=== PATIENT | male | born 1975 | race Caucasian/White ===

== ENCOUNTER 2016-05-21 11:04 | Emergency (ER) | payer MEDICAID ==
[~2016-05-21] VITALS: Ht 175.3 cm; Wt 98.4 kg
[~2016-05-21 11:04] MED LIST: BUSP7.5T3 PO; CYCL-259 PO; DOLU50TA PO; EMTR1TAB12 PO; FLUO40CA9 PO; FLUO60TA PO; HYDR50CA PO; IBUP-1222 PO; PRAZ2CAP2 PO; TRAZ50TA18 PO; [UNRECOGNIZED DRUG - OTHER] PO
[2016-05-21 11:05] VITALS: BP 137/90
[2016-05-21] MEDS ORDERED: LORazepam 1MG TABLET ONE (11:49)
[2016-05-21] MEDS ORDERED: LORazepam 1MG TABLET PO ONE (12:00)
== END 2016-05-21 13:00 | disposition home or self-care (01) ==
LOC: ED 12:23
DX: F41.1 Generalized anxiety disorder (principal); F32.9 Major depressive disorder, single episode, unspecified; Z90.89 Acquired absence of other organs
CPT/HCPCS: 99284

== ENCOUNTER 2016-05-25 22:43 | Observation (INO) | payer MEDICAID ==
[~2016-05-25] VITALS: Ht 175.3 cm; Wt 96.4 kg
[2016-05-25 23:37] LABS: HEMOGLOBIN 15.3 g/dL (13.7-18.0)
[2016-05-25 23:51] LABS: ACETAMINOPHEN < 2 mcg/mL (10-30); BLOOD UREA NITROGEN 19 mg/dL (7-18)
[2016-05-25 23:57] LABS: DAU SCREEN DISCLAIMER
[2016-05-26] MEDS ORDERED: BISACODYL 10 MG SUPP PR PRN (03:30)
[2016-05-26] MEDS ORDERED: DOCUSATE 100 MG CAPSULE PO PRN (03:30)
[2016-05-26] MEDS ORDERED: ONDANSETRON ODT 4 MG PO PRN (03:30)
[2016-05-26] MEDS ORDERED: POLYETHYLENE GLYCOL 17 GM PACKET PO PRN (03:30)
[2016-05-26] MEDS ORDERED: hydrOXYzine 25 MG/ML IM PRN (03:30)
[2016-05-26 04:05] VITALS: BP 131/90
[2016-05-26] MEDS ORDERED: POTASSIUM CHLORIDE 20 MEQ TAB.ER.PRT PO ONE (04:30)
[2016-05-26 08:04] VITALS: BP 113/70
[2016-05-26] MEDS: EMTRICITABINE/TENOFOVIR 200 MG/300 MG TABLET PO SCH (09:04)
[2016-05-26] MEDS: FLUOXETINE 20 MG CAPSULE PO SCH (09:04)
[2016-05-26] MEDS: HYDROcodone/APAP 5/325 TABLET PO PRN ×2 (14:49→20:59)
[2016-05-26] MEDS: ACETAMINOPHEN 325 MG TABLET PO PRN (16:24)
[2016-05-26 20:00] VITALS: BP 119/68
[2016-05-26] MEDS: TRAZODONE 50MG TABLET PO PRN (20:59)
[2016-05-27] MEDS: HYDROcodone/APAP 5/325 TABLET PO PRN ×3 (03:03→20:11)
[2016-05-27] MEDS: EMTRICITABINE/TENOFOVIR 200 MG/300 MG TABLET PO SCH (07:56)
[2016-05-27] MEDS: FLUOXETINE 20 MG CAPSULE PO SCH (07:56)
[2016-05-27 08:27] VITALS: BP 124/83
[2016-05-27 19:44] VITALS: BP 135/82
[2016-05-27] MEDS: ACETAMINOPHEN 325 MG TABLET PO PRN (21:41)
[2016-05-27] MEDS: TRAZODONE 50MG TABLET PO PRN (22:18)
[2016-05-28] MEDS: HYDROcodone/APAP 5/325 TABLET PO PRN (05:37)
== END 2016-05-28 06:06 ==
LOC: ED 23:59 → INTOOBSV 05-26 02:18 → EDIP 05-26 02:18 → 3E 05-26 04:00
PROVIDERS: ADMIT Internal Medicine; ATTEND Internal Medicine
DX: R45.851 Suicidal ideations (principal); B20 Human immunodeficiency virus [HIV] disease; B19.20 Unspecified viral hepatitis C without hepatic coma; J06.9 Acute upper respiratory infection, unspecified; F41.9 Anxiety disorder, unspecified; E87.6 Hypokalemia; F32.9 Major depressive disorder, single episode, unspecified; M54.9 Dorsalgia, unspecified; G89.29 Other chronic pain; F17.210 Nicotine dependence, cigarettes, uncomplicated; F15.10 Other stimulant abuse, uncomplicated; Z98.890 Other specified postprocedural states
CPT/HCPCS: 36415; 80048; 80307; 80329; 82040; 84132; 85025; 99285; G0378; G0480

== ENCOUNTER 2016-07-10 12:36 | Observation (INO) | payer MEDICAID ==
[~2016-07-10] VITALS: Ht 175.3 cm; Wt 98.0 kg
[2016-07-10] MEDS ORDERED: FLUO40CA2 PO (12:57)
[2016-07-10] MEDS ORDERED: BUSP7.5T3 PO (12:57)
[2016-07-10] MEDS ORDERED: CLON0.5T PO (12:57)
[2016-07-10] MEDS ORDERED: DICL50TA4 PO (12:57)
[2016-07-10] MEDS ORDERED: DOLU50TA PO (12:57)
[2016-07-10] MEDS ORDERED: TRAZ100T15 PO (12:57)
[2016-07-10] MEDS ORDERED: HYDR25CA PO (12:57)
[2016-07-10] MEDS ORDERED: FLUO40CA9 PO (12:57)
[2016-07-10 13:14] LABS: DAU SCREEN DISCLAIMER
[2016-07-10 14:13] LABS: BLOOD UREA NITROGEN 9 mg/dL (7-18)
[2016-07-10 14:16] LABS: ASPARTATE AMINO TRANSFERASE 44 U/L (15-37)
[2016-07-10 14:17] LABS: ACETAMINOPHEN < 2 mcg/mL (10-30)
[2016-07-10] MEDS ORDERED: POLYETHYLENE GLYCOL 17 GM PACKET PO PRN (18:00)
[2016-07-10] MEDS ORDERED: ACETAMINOPHEN 325 MG TABLET PO PRN (18:00)
[2016-07-10] MEDS ORDERED: DOCUSATE 100 MG CAPSULE PO PRN (18:00)
[2016-07-10] MEDS ORDERED: BISACODYL 10 MG SUPP PR PRN (18:00)
[2016-07-10] MEDS ORDERED: HYDROXYZINE PAMOATE 25 MG PO SCH (19:00)
[2016-07-10] MEDS ORDERED: HYDROXYZINE MC SCH (19:00)
[2016-07-10 19:19] VITALS: BP 135/86
[2016-07-10] MEDS ORDERED: TRAZODONE 50MG TABLET ONE (20:12)
[2016-07-10] MEDS ORDERED: DICLOFENAC 50 MG TABLET.DR PO SCH (21:00)
[2016-07-10] MEDS: TRAZODONE 100MG TABLET PO SCH (21:12)
[2016-07-11 08:20] VITALS: BP 112/73
[2016-07-11] MEDS: BUSPIRONE 5 MG TABLET PO SCH (08:57)
[2016-07-11] MEDS: FLUOXETINE 20 MG CAPSULE PO SCH (08:58)
[2016-07-11] MEDS ORDERED: TEMPLATE NON-FORMULARY MED. (Fluoxetine Hcl** 40 MG) PO SCH (09:00)
[2016-07-11] MEDS: DOLUTEGRAVIR SODIUM 50 MG HOMEMEDPO SCH (09:00)
[2016-07-11 19:21] VITALS: BP 147/85
[2016-07-11] MEDS: TRAZODONE 100MG TABLET PO SCH (20:24)
[2016-07-12 07:43] VITALS: BP 134/93
[2016-07-12] MEDS: BUSPIRONE 5 MG TABLET PO SCH (08:54)
[2016-07-12] MEDS: DOLUTEGRAVIR SODIUM 50 MG HOMEMEDPO SCH (08:55)
[2016-07-12] MEDS: FLUOXETINE 20 MG CAPSULE PO SCH (08:55)
[2016-07-12 19:55] VITALS: BP_SYST 124; BP_SYST 148; BP_DIAS 81; BP_DIAS 99
[2016-07-12] MEDS: TRAZODONE 100MG TABLET PO SCH (21:00)
[2016-07-13 07:56] VITALS: BP 132/89
[2016-07-13] MEDS: DOLUTEGRAVIR SODIUM 50 MG HOMEMEDPO SCH (08:28)
[2016-07-13] MEDS: BUSPIRONE 5 MG TABLET PO SCH (08:29)
[2016-07-13] MEDS: FLUOXETINE 20 MG CAPSULE PO SCH (08:30)
[2016-07-13] MEDS: TRAZODONE 100MG TABLET PO SCH (21:00)
[2016-07-14 08:00] VITALS: BP 128/85
[2016-07-14] MEDS: DOLUTEGRAVIR SODIUM 50 MG HOMEMEDPO SCH (09:00)
[2016-07-14] MEDS: BUSPIRONE 5 MG TABLET PO SCH (09:02)
[2016-07-14] MEDS: FLUOXETINE 20 MG CAPSULE PO SCH (09:03)
[2016-07-14] MEDS: METHOCARBAMOL 500 MG TABLET PO PRN (13:38)
[2016-07-14 19:38] VITALS: BP 130/84
[2016-07-14] MEDS: TRAZODONE 100MG TABLET PO SCH (20:12)
[2016-07-15] MEDS: DOLUTEGRAVIR SODIUM 50 MG HOMEMEDPO SCH (07:57)
[2016-07-15] MEDS: BUSPIRONE 5 MG TABLET PO SCH (07:58)
[2016-07-15] MEDS: FLUOXETINE 20 MG CAPSULE PO SCH (07:59)
[2016-07-15 08:08] VITALS: BP 122/70
[2016-07-15 20:01] VITALS: BP 116/76
[2016-07-15] MEDS ORDERED: TRAZODONE 50MG TABLET ONE (20:58)
[2016-07-15] MEDS: TRAZODONE 100MG TABLET PO SCH (21:00)
[2016-07-16] MEDS: DOLUTEGRAVIR SODIUM 50 MG HOMEMEDPO SCH (08:11)
[2016-07-16] MEDS: BUSPIRONE 5 MG TABLET PO SCH (08:12)
[2016-07-16] MEDS: FLUOXETINE 20 MG CAPSULE PO SCH (08:13)
[2016-07-16 08:34] VITALS: BP 133/95
[2016-07-16 19:43] VITALS: BP 137/80
[2016-07-16] MEDS: TRAZODONE 100MG TABLET PO SCH (22:37)
[2016-07-17 07:57] VITALS: BP 115/57
[2016-07-17] MEDS: BUSPIRONE 5 MG TABLET PO SCH (08:49)
[2016-07-17] MEDS: FLUOXETINE 20 MG CAPSULE PO SCH (08:50)
[2016-07-17] MEDS: DOLUTEGRAVIR SODIUM 50 MG HOMEMEDPO SCH (09:00)
[2016-07-17 20:00] VITALS: BP 125/90
[2016-07-17] MEDS ORDERED: TRAZODONE 50MG TABLET ONE (20:31)
[2016-07-17] MEDS: TRAZODONE 100MG TABLET PO SCH (20:40)
[2016-07-18] MEDS: METHOCARBAMOL 500 MG TABLET PO PRN ×2 (04:14→21:36)
[2016-07-18 07:41] VITALS: BP 129/92
[2016-07-18] MEDS: FLUOXETINE 20 MG CAPSULE PO SCH (08:50)
[2016-07-18] MEDS: BUSPIRONE 5 MG TABLET PO SCH (08:51)
[2016-07-18] MEDS: DOLUTEGRAVIR SODIUM 50 MG HOMEMEDPO SCH (08:54)
[2016-07-18 19:22] VITALS: BP 127/92
[2016-07-18] MEDS: TRAZODONE 100MG TABLET PO SCH (20:59)
[2016-07-19 07:42] VITALS: BP 112/75
[2016-07-19] MEDS: DOLUTEGRAVIR SODIUM 50 MG HOMEMEDPO SCH (09:00)
[2016-07-19] MEDS: FLUOXETINE 20 MG CAPSULE PO SCH (09:00)
[2016-07-19] MEDS: BUSPIRONE 5 MG TABLET PO SCH (09:00)
== END 2016-07-19 18:00 | disposition home or self-care (01) ==
LOC: ED 14:01 → EDIP 16:59 → 3E 18:06
PROVIDERS: ADMIT Hospitalist; ATTEND Hospitalist
DX: R45.851 Suicidal ideations (principal); F15.10 Other stimulant abuse, uncomplicated; F32.9 Major depressive disorder, single episode, unspecified; F41.9 Anxiety disorder, unspecified; B19.20 Unspecified viral hepatitis C without hepatic coma; B20 Human immunodeficiency virus [HIV] disease; G89.29 Other chronic pain; Z91.14 Patient's other noncompliance with medication regimen
CPT/HCPCS: 36415; 80053; 80307; 80329; 81003; 84439; 84443; 85025; 99285; G0378; Q0177; G0480

== ENCOUNTER 2016-08-03 23:20 | Emergency (ER) | payer SELFPAY ==
[~2016-08-03] VITALS: Ht 175.3 cm; Wt 105.0 kg
[~2016-08-03 23:20] MED LIST changes: +CLON0.5T PO; +DICL50TA4 PO; +FLUO40CA2 PO; +HYDR25CA PO; +TRAZ100T15 PO
[2016-08-03] MEDS ORDERED: LORazepam 1MG TABLET ONE (23:42)
[2016-08-04] MEDS ORDERED: LORazepam 1MG TABLET PO ONE
[2016-08-04 00:08] VITALS: BP 135/94
== END 2016-08-04 00:10 | disposition home or self-care (01) ==
LOC: ED 23:47
DX: F41.1 Generalized anxiety disorder (principal); G43.909 Migraine, unspecified, not intractable, without status migrainosus; Z76.0 Encounter for issue of repeat prescription
CPT/HCPCS: 99284

== ENCOUNTER 2016-09-07 12:57 | Emergency (ER) | payer MEDICAID ==
[~2016-09-07] VITALS: Ht 175.3 cm; Wt 101.5 kg
[2016-09-07 13:01] VITALS: BP 136/86
[2016-09-07] MEDS ORDERED: IBUPROFEN 200 MG TABLET ONE (14:08)
[2016-09-07] MEDS ORDERED: METHOCARBAMOL 750 MG TABLET ONE (14:08)
[2016-09-07] MEDS ORDERED: IBUPROFEN 200 MG TABLET PO ONE (14:30)
[2016-09-07] MEDS ORDERED: METHOCARBAMOL 750 MG TABLET PO ONE (14:30)
== END 2016-09-07 14:46 | disposition home or self-care (01) ==
LOC: ED 14:25
DX: S22.089A Unspecified fracture of T11-T12 vertebra, initial encounter for closed fracture (principal); X58.XXXA Exposure to other specified factors, initial encounter; Y93.89 Activity, other specified; Y92.89 Other specified places as the place of occurrence of the external cause; Y99.9 Unspecified external cause status
CPT/HCPCS: 72072; 99284

== ENCOUNTER 2017-01-26 20:34 | Emergency (ER) | payer MEDICAID ==
[~2017-01-26] VITALS: Ht 175.3 cm; Wt 95.3 kg
[~2017-01-26 20:34] MED LIST changes: -EMTR1TAB12 PO; +EMTR1TAB8 PO
[2017-01-26 20:36] VITALS: BP 154/91
[2017-01-26] MEDS ORDERED: IBUPROFEN 200 MG TABLET PO ONE (21:00)
[2017-01-26] MEDS ORDERED: IBUPROFEN 200 MG TABLET ONE (21:12)
== END 2017-01-26 22:00 | disposition home or self-care (01) ==
LOC: ED 21:56
DX: S83.91XA Sprain of unspecified site of right knee, initial encounter (principal); X58.XXXA Exposure to other specified factors, initial encounter; Y93.89 Activity, other specified; Y92.89 Other specified places as the place of occurrence of the external cause; Y99.8 Other external cause status
CPT/HCPCS: 29505

== ENCOUNTER 2017-02-18 18:58 | Emergency (ER) | payer MEDICAID ==
[~2017-02-18] VITALS: Ht 175.3 cm; Wt 94.0 kg
[2017-02-18 19:17] VITALS: BP 145/97
[2017-02-18] MEDS ORDERED: LORazepam 1MG TABLET PO ONE (19:30)
[2017-02-18] MEDS ORDERED: LORazepam 1MG TABLET ONE (19:30)
== END 2017-02-18 20:55 | disposition home or self-care (01) ==
LOC: ED 19:49
DX: F41.1 Generalized anxiety disorder (principal); F32.9 Major depressive disorder, single episode, unspecified; G43.909 Migraine, unspecified, not intractable, without status migrainosus; F10.20 Alcohol dependence, uncomplicated
CPT/HCPCS: 93005; 99284

== ENCOUNTER 2017-03-02 00:59 | Emergency (ER) | payer MEDICAID ==
[~2017-03-02] VITALS: Ht 177.8 cm; Wt 93.5 kg
[2017-03-02 01:00] VITALS: BP 157/101
== END 2017-03-02 02:41 | disposition home or self-care (01) ==
LOC: ED 01:56
DX: M25.561 Pain in right knee (principal); F15.20 Other stimulant dependence, uncomplicated; F17.210 Nicotine dependence, cigarettes, uncomplicated; G43.909 Migraine, unspecified, not intractable, without status migrainosus; F32.9 Major depressive disorder, single episode, unspecified
CPT/HCPCS: 99283

== ENCOUNTER 2017-03-03 11:52 | Emergency (ER) | payer MEDICAID ==
[~2017-03-03] VITALS: Ht 177.8 cm; Wt 92.0 kg
[2017-03-03 11:56] VITALS: BP 143/93
[2017-03-03] MEDS ORDERED: HYDROcodone/APAP 5/325 TABLET ONE (13:41)
[2017-03-03] MEDS ORDERED: HYDROcodone/APAP 5/325 TABLET PO ONE (14:00)
== END 2017-03-03 14:58 | disposition home or self-care (01) ==
LOC: ED 14:00
DX: S90.121A Contusion of right lesser toe(s) without damage to nail, initial encounter (principal); M25.561 Pain in right knee; G89.29 Other chronic pain; F32.9 Major depressive disorder, single episode, unspecified; F10.20 Alcohol dependence, uncomplicated; G43.909 Migraine, unspecified, not intractable, without status migrainosus; Z76.5 Malingerer [conscious simulation]; W22.8XXA Striking against or struck by other objects, initial encounter; Y93.89 Activity, other specified; Y99.8 Other external cause status; Y92.009 Unspecified place in unspecified non-institutional (private) residence as the place of occurrence of the external cause
CPT/HCPCS: 29505

== ENCOUNTER 2017-04-09 20:50 | Emergency (ER) | payer MEDICAID ==
[~2017-04-09] VITALS: Ht 175.3 cm; Wt 100.3 kg
[2017-04-09 22:24] LABS: BASOPHILS # (AUTO) 0.07 x10^3/uL (0-0.1); BASOPHILS % (AUTO) 1 % (0-1); EOSINOPHILS # (AUTO) 0.18 x10^3/uL (0-0.4); EOSINOPHILS % (AUTO) 2 % (1-7); LYMPHOCYTES # (AUTO) 4.08 x10^3/uL (1-3.4); LYMPHOCYTES % (AUTO) 42 % (22-44); MD NO; MEAN CORPUSCULAR HGB CONC 33.6 g/dL (33.2-36.2); MEAN CORPUSCULAR VOLUME 89.4 fL (81-97); MEAN PLATELET VOLUME 8.9 fL (7.4-10.4); MONOCYTES # (AUTO) 0.85 x10^3/uL (0.2-0.8); MONOCYTES % (AUTO) 9 % (2-9); NEUTROPHILS # (AUTO) 4.52 x10^3/uL (1.8-6.8); NEUTROPHILS % (AUTO) 47 % (42-75); PLATELET COUNT 275 x10^3/uL (130-400); RED BLOOD COUNT 4.73 x10^6/uL (4.38-5.82)
[2017-04-09] MEDS ORDERED: MECLIZINE CHEWABLE 25 MG TAB ONE (22:27)
[2017-04-09] MEDS ORDERED: CEFTRIAXONE 1,000 MG ONE (22:28)
[2017-04-09] MEDS ORDERED: CEFTRIAXONE 1,000 MG IM ONE (22:30)
[2017-04-09] MEDS ORDERED: MECLIZINE CHEWABLE 25 MG TAB PO ONE (22:30)
[2017-04-09 22:36] LABS: ANION GAP 9 mmol/L (5-15); CALCIUM 7.7 mg/dL (8.5-10.1); CHLORIDE 110 mmol/L (98-107); CREATININE 0.85 mg/dL (0.7-1.3)
[2017-04-09 23:24] VITALS: BP 137/84
== END 2017-04-09 23:24 | disposition home or self-care (01) ==
LOC: ED 23:06
DX: H66.002 Acute suppurative otitis media without spontaneous rupture of ear drum, left ear (principal); H81.10 Benign paroxysmal vertigo, unspecified ear; F10.20 Alcohol dependence, uncomplicated
CPT/HCPCS: 36415; 80048; 82040; 85025; 93005; 96372; 99285; J0696

== ENCOUNTER 2018-03-28 13:19 | Emergency (ER) | payer MEDICAID ==
[~2018-03-28] VITALS: Ht 177.8 cm; Wt 93.6 kg
[~2018-03-28 13:19] MED LIST changes: +TRAZ-137 PO; -TRAZ100T15 PO; -TRAZ50TA18 PO; +TRAZ50TA66 PO
--- NOTE | 2018-03-28 13:57 | NUR ---
PT TO ROOM FROM LOBBY
[2018-03-28] MEDS ORDERED: SODIUM CHLORIDE FLUSH 10ML SYR IVF ONE (14:00)
[2018-03-28] MEDS ORDERED: SODIUM CHLORIDE 0.9% 1,000ML IVBOLUS ONE ×2 (14:00→16:00)
[2018-03-28] MEDS ORDERED: ONDANSETRON 2MG/ML, 2ML IVPush ONE ×2 (14:00→17:00)
--- NOTE | 2018-03-28 14:15 | NUR ---
PT INSTRUCTED TO PROVIDE STOOL SAMPLE WHEN ABLE, PROVIDED WITH SUPPLIES
[2018-03-28 14:23] LABS: BASOPHILS # (AUTO) 0.08 x10^3/uL (0-0.1); BASOPHILS % (AUTO) 1 % (0-1); EOSINOPHILS # (AUTO) 0.02 x10^3/uL (0-0.4); EOSINOPHILS % (AUTO) 0 % (1-7); LYMPHOCYTES % (AUTO) 23 % (22-44); MD NO; MEAN CORPUSCULAR HEMOGLOBIN 30.3 pg (27.5-34.5); MEAN CORPUSCULAR HGB CONC 33.3 g/dL (33.2-36.2); MEAN CORPUSCULAR VOLUME 90.8 fL (81-97); MEAN PLATELET VOLUME 9.3 fL (7.4-10.4); MONOCYTES # (AUTO) 0.87 x10^3/uL (0.2-0.8); MONOCYTES % (AUTO) 9 % (2-9); NEUTROPHILS % (AUTO) 67 % (42-75); PLATELET COUNT 269 x10^3/uL (130-400); RED BLOOD COUNT 6.06 x10^6/uL (4.38-5.82); RED CELL DISTRIBUTION WIDTH 14.2 % (9.4-14.8)
[2018-03-28 14:37] LABS: ALBUMIN 3.7 g/dL (3.4-5.0); ANION GAP 9 mmol/L (5-15); CALCIUM 8.8 mg/dL (8.5-10.1); CHLORIDE 107 mmol/L (98-107)
[2018-03-28 14:42] LABS: ALANINE AMINOTRANSFERASE 58 U/L (12-78); ALKALINE PHOSPHATASE 83 U/L (45-117); BILIRUBIN,TOTAL 0.5 mg/dL (0.2-1.0); TOTAL PROTEIN 8.9 g/dL (6.4-8.2)
--- NOTE | 2018-03-28 14:45 | NUR ---
PT PRESENTS TO ED WITH C/O LEFT UPPER ABD PAIN WITH N/V/D X 6 DAYS. BP AND SPO2 MONITORS IN PLACE. PIV EST. PT HAS NOT PROVIDED STOOL YET. BP AND SPO2 MONTIORS IN PLACE. CALL LIGHT IN REACH.
[2018-03-28] MEDS ORDERED: ONDANSETRON 2MG/ML, 2ML ONE ×2 (14:58→16:32)
--- NOTE | 2018-03-28 15:21 | NUR ---
STOOL SAMPLE COLLECTED AND WALKED TO LAB.
--- NOTE | 2018-03-28 15:55 | NUR ---
stool studies pending, special contact precautions in place. pt to have second liter IVF, awaiting stool results and dispo.
[2018-03-28 16:20] LABS: CRYPTOSPORIDIUM ANTIGEN Negative (Negative)
[2018-03-28 16:28] LABS: CLOSTRIDIUM DIFFICILE ANTIGEN NEGATIVE; CLOSTRIDIUM DIFFICILE TOXIN NEGATIVE (Negative)
[2018-03-28] MEDS ORDERED: LOPERAMIDE 2 MG CAPSULE ONE (16:33)
--- NOTE | 2018-03-28 16:38 | NUR ---
pt requesting repeat dose of zofran for returning nausea, pt also requests immodium. MD Bacon notified. pt medicated per emar, tolerated well.
--- NOTE | 2018-03-28 16:45 | NUR ---
pt reports increase in abd pain which is now generalized. EDPA Lisa notified. order received for bentyl. EDPA and MD Bacon notified k level is 3.1. pt to be medicated and discharged.
[2018-03-28] MEDS ORDERED: DICYCLOMINE 10 MG/ML, 2ML ONE (16:54)
[2018-03-28] MEDS ORDERED: LOPERAMIDE 2 MG CAPSULE PO ONE (17:00)
[2018-03-28] MEDS ORDERED: DICYCLOMINE 10 MG/ML, 2ML IM ONE (17:00)
[2018-03-28 17:29] VITALS: BP 141/79
--- NOTE | 2018-03-28 17:30 | NUR ---
pt reports abd pain and nausea resolved. no diarrhea since episode x 1 at 1500. pt given dc instructions and script. pt educated regarding rx for bentyl, zofran and septra. PIV dc'd with tip intact. pt a&o, resps even and unlabored, nadn. pt amb to dc desk with steady gait, nadn at dc.
== END 2018-03-28 17:31 | disposition home or self-care (01) ==
LOC: ED 15:51
DX: K52.89 Other specified noninfective gastroenteritis and colitis (principal); B96.89 Other specified bacterial agents as the cause of diseases classified elsewhere; G43.909 Migraine, unspecified, not intractable, without status migrainosus
CPT/HCPCS: 36415; 74021; 80053; 85025; 87046; 87324; 87328; 87329; 87427; 89055; 96361; 96372; 96374; 96376; 99284; J0500; J2405; J7030

== ENCOUNTER 2019-01-07 14:35 | Inpatient (IN) | payer MEDICAID ==
[~2019-01-07] VITALS: Ht 177.8 cm; Wt 104.1 kg
[2019-01-07] MEDS ORDERED: SODIUM CHLORIDE 0.9% 1,000ML IVBOLUS ONE ×2 (15:00→16:30)
[2019-01-07] MEDS ORDERED: SODIUM CHLORIDE FLUSH 10ML SYR IVF ONE (15:00)
[2019-01-07] MEDS ORDERED: ONDANSETRON 2MG/ML, 2ML IVPush ONE ×2 (15:00→16:30)
[2019-01-07] MEDS ORDERED: HYDROmorphone 2 MG/ML, 1ML IVPush PRN (15:00)
[2019-01-07 15:07] LABS: MEAN CORPUSCULAR HEMOGLOBIN 30.1 pg (27.5-34.5); MEAN CORPUSCULAR HGB CONC 32.4 g/dL (33.2-36.2); MEAN CORPUSCULAR VOLUME 92.7 fL (81-97); PLATELET COUNT 329 x10^3/uL (130-400)
[2019-01-07 15:20] LABS: ALANINE AMINOTRANSFERASE 42 U/L (12-78); ALBUMIN 3.9 g/dL (3.4-5.0); ANION GAP 9 mmol/L (5-15); CALCIUM 9.1 mg/dL (8.5-10.1); CHLORIDE 109 mmol/L (98-107); CREATININE 1.73 mg/dL (0.7-1.3)
[2019-01-07 15:23] LABS: ALKALINE PHOSPHATASE 131 U/L (45-117); BILIRUBIN,TOTAL 0.5 mg/dL (0.2-1.0); TOTAL PROTEIN 9.6 g/dL (6.4-8.2)
--- NOTE | 2019-01-07 15:45 | NUR ---
RR DECREASED AFTER RECEIVING PAIN MED. FACE DIAPHORETIC. PT TO CT
[2019-01-07 15:58] LABS: MD YES
[2019-01-07 16:03] LABS: BAND#(MANUAL) 1.72 x10^3/uL; BANDS%(MANUAL) 7 % (0-7); LYMPH#(MANUAL) 2.95 x10^3/uL (1-3.4); LYMPHS% (MANUAL) 12 % (22-44); MONOS#(MANUAL) 2.46 x10^3/uL (0.3-2.7); MONOS% (MANUAL) 10 % (2-9); SEG#(MANUAL) 17.47 x10^3/uL (1.8-6.8); SEGS% (MANUAL) 71 % (42-75)
[2019-01-07 16:04] LABS: <PLATELET ESTIMATE> ADEQUATE; <PLT MORPHOLOGY> NORMAL PLT MORPH; <RBC MORPHOLOGY> NORMAL
[2019-01-07] MEDS ORDERED: OMNIPAQUE 350 MG/ML, 100ML BOTTLE ONE (16:04)
[2019-01-07] MEDS ORDERED: CEFTRIAXONE PMX 1GM/50ML 50 ML ONE (16:27)
[2019-01-07] MEDS ORDERED: METRONIDAZOLE PMX 500MG/100ML 100 ML ONE (16:27)
[2019-01-07] MEDS ORDERED: HYDROmorphone 2 MG/ML, 1ML IVPush ONE (16:30)
[2019-01-07] MEDS ORDERED: SODIUM CHLORIDE 0.9%, 500ML IVBOLUS ONE (16:30)
[2019-01-07] MEDS ORDERED: METRONIDAZOLE PMX 500MG/100ML 100 ML IV ONE (16:30)
[2019-01-07] MEDS ORDERED: CEFTRIAXONE PMX 1GM/50ML 50 ML IV ONE (16:30)
--- NOTE | 2019-01-07 16:51 | NUR ---
VOMITED X1. IV BOLUS INFUSING WITH FIRST ANTIBIOTIC. HOSPITALIST AT BEDSIDE EXAMINING PT
[2019-01-07] MEDS ORDERED: HYDROmorphone 1 MG/ML, 1ML VIAL ONE (16:53)
[2019-01-07] MEDS ORDERED: ONDANSETRON 2MG/ML, 2ML ONE (16:54)
[2019-01-07] MEDS ORDERED: hydrALAzine 20 MG/ML, 1ML IVPush PRN (17:00)
[2019-01-07] MEDS ORDERED: PROMETHAZINE 25 MG/ML, 1ML IM PRN (17:00)
[2019-01-07] MEDS ORDERED: ACETAMINOPHEN 325 MG TABLET PO PRN (17:00)
[2019-01-07] MEDS ORDERED: ONDANSETRON 2MG/ML, 2ML IVPush PRN (17:00)
[2019-01-07] MEDS ORDERED: morphine SULFATE 10 MG/ML, 1ML IVPush PRN (17:00)
--- NOTE | 2019-01-07 17:04 | NUR ---
MEDICATED FOR ABDOMINAL PAIN AND VOMITING
[2019-01-07 17:10] LABS: MICROSCOPIC INDICATED
[2019-01-07] MEDS: SODIUM CHLORIDE 0.9% 1,000 ML IV SCH ×2 (17:17→21:35)
[2019-01-07 17:18] LABS: CULTURE INDICATED? NO
--- NOTE | 2019-01-07 18:01 | NUR ---
AMBULATED TO BATHROOM WITH RN, STEADY GAIT
[2019-01-07 18:27] LABS: AMPHETAMINE SCREEN, URINE Positive (Negative); BARBITURATE SCREEN, URINE Negative (Negative); BENZODIAZEPINE SCREEN, URINE Negative (Negative); CANNABINOID SCREEN, URINE Negative (Negative); COCAINE SCREEN, URINE Negative (Negative); METHADONE SCREEN, URINE Negative (Negative); OPIATE SCREEN, URINE Positive (Negative)
--- NOTE | 2019-01-07 18:47 | NUR ---
PT TAKEN A SPRITE.
[2019-01-07 19:27] VITALS: BP 148/107
[2019-01-07] MEDS: NICOTINE 14MG/24 HR PATCH.TD24 TD SCH (21:04)
[2019-01-07] MEDS: TRAZODONE 50MG TABLET PO SCH (21:04)
[2019-01-07] MEDS: HEPARIN 5,000 UNITS/ML, 1ML SQ SCH (21:05)
[2019-01-07 22:36] LABS: CLOSTRIDIUM DIFFICILE ANTIGEN NEGATIVE; CLOSTRIDIUM DIFFICILE TOXIN NEGATIVE (Negative)
[2019-01-07] MEDS: METRONIDAZOLE PMX 500MG/100ML 100 ML IV SCH (23:06)
[2019-01-07] MEDS: OXYcodone IR 5MG TABLET PO PRN (23:06)
[2019-01-08 00:12] VITALS: BP 144/98
[2019-01-08] MEDS: OXYcodone IR 5MG TABLET PO PRN ×5 (04:00→21:51)
[2019-01-08] MEDS: SODIUM CHLORIDE 0.9% 1,000 ML IV SCH ×3 (05:17→18:20)
[2019-01-08] MEDS: METRONIDAZOLE PMX 500MG/100ML 100 ML IV SCH ×4 (05:17→22:59)
[2019-01-08] MEDS: HEPARIN 5,000 UNITS/ML, 1ML SQ SCH ×3 (05:17→21:51)
[2019-01-08 07:08] LABS: ANION GAP 6 mmol/L (5-15); CALCIUM 7.5 mg/dL (8.5-10.1); CHLORIDE 111 mmol/L (98-107); CREATININE 0.94 mg/dL (0.7-1.3)
[2019-01-08 07:23] VITALS: BP 146/92
[2019-01-08 07:24] LABS: BASOPHILS # (AUTO) 0.02 x10^3/uL (0-0.1); BASOPHILS % (AUTO) 0 % (0-1); EOSINOPHILS # (AUTO) 0.12 x10^3/uL (0-0.4); EOSINOPHILS % (AUTO) 2 % (1-7); LYMPHOCYTES % (AUTO) 29 % (22-44); MEAN CORPUSCULAR HGB CONC 33.2 g/dL (33.2-36.2); MEAN CORPUSCULAR VOLUME 90.6 fL (81-97); MEAN PLATELET VOLUME 8.5 fL (7.4-10.4); MONOCYTES % (AUTO) 10 % (2-9); NEUTROPHILS % (AUTO) 59 % (42-75); PLATELET COUNT 221 x10^3/uL (130-400); RED BLOOD COUNT 5.36 x10^6/uL (4.38-5.82); RED CELL DISTRIBUTION WIDTH 13.9 % (9.4-14.8)
[2019-01-08 07:25] LABS: HEMOGRAM NOTE RECHECKED; MD NO
[2019-01-08] MEDS ORDERED: MAGNESIUM SULFATE PMX 2GM/50ML 50 ML IV ONE (08:30)
[2019-01-08] MEDS: DOLUTEGRAVIR 50MG TAB PO SCH (08:59)
[2019-01-08] MEDS: FLUOXETINE HCL 20 MG CAPSULE PO SCH (09:00)
[2019-01-08] MEDS ORDERED: HYDROXYZINE PAMOATE 25MG CAP PO PRN (09:00)
[2019-01-08] MEDS: BUSPIRONE 5 MG TABLET PO SCH (09:00)
[2019-01-08 12:52] VITALS: BP 150/97
[2019-01-08] MEDS: CEFTRIAXONE PMX 1GM/50ML 50 ML IV SCH (15:45)
[2019-01-08] MEDS: NICOTINE 14MG/24 HR PATCH.TD24 TD SCH (17:46)
[2019-01-08 19:54] VITALS: BP 133/74
[2019-01-08] MEDS: TRAZODONE 50MG TABLET PO SCH (21:51)
[2019-01-09 00:18] VITALS: BP 109/68
[2019-01-09] MEDS: SODIUM CHLORIDE 0.9% 1,000 ML IV SCH ×4 (02:17→22:17)
[2019-01-09] MEDS: OXYcodone IR 5MG TABLET PO PRN ×4 (02:22→17:23)
[2019-01-09] MEDS: METRONIDAZOLE PMX 500MG/100ML 100 ML IV SCH ×4 (05:26→23:39)
[2019-01-09] MEDS: HEPARIN 5,000 UNITS/ML, 1ML SQ SCH ×3 (05:26→20:27)
[2019-01-09] MEDS: FLUOXETINE HCL 20 MG CAPSULE PO SCH (08:21)
[2019-01-09] MEDS: BUSPIRONE 5 MG TABLET PO SCH (08:21)
[2019-01-09] MEDS: DOLUTEGRAVIR 50MG TAB PO SCH (08:21)
[2019-01-09 08:30] VITALS: BP 146/74
[2019-01-09 10:20] LABS: BASOPHILS # (AUTO) 0.01 x10^3/uL (0-0.1); BASOPHILS % (AUTO) 0 % (0-1); EOSINOPHILS # (AUTO) 0.05 x10^3/uL (0-0.4); EOSINOPHILS % (AUTO) 1 % (1-7); LYMPHOCYTES # (AUTO) 1.66 x10^3/uL (1-3.4); LYMPHOCYTES % (AUTO) 32 % (22-44); MD NO; MEAN CORPUSCULAR HEMOGLOBIN 30.1 pg (27.5-34.5); MEAN CORPUSCULAR HGB CONC 33.3 g/dL (33.2-36.2); MEAN CORPUSCULAR VOLUME 90.5 fL (81-97); MEAN PLATELET VOLUME 8.5 fL (7.4-10.4); MONOCYTES # (AUTO) 0.48 x10^3/uL (0.2-0.8); MONOCYTES % (AUTO) 9 % (2-9); NEUTROPHILS # (AUTO) 3.01 x10^3/uL (1.8-6.8); NEUTROPHILS % (AUTO) 58 % (42-75); PLATELET COUNT 193 x10^3/uL (130-400); RED BLOOD COUNT 4.73 x10^6/uL (4.38-5.82); RED CELL DISTRIBUTION WIDTH 13.3 % (9.4-14.8)
[2019-01-09 10:24] LABS: ALBUMIN 2.4 g/dL (3.4-5.0); ANION GAP 6 mmol/L (5-15); CALCIUM 7.4 mg/dL (8.5-10.1); CHLORIDE 113 mmol/L (98-107)
[2019-01-09 10:27] LABS: ALANINE AMINOTRANSFERASE 24 U/L (12-78); ALKALINE PHOSPHATASE 83 U/L (45-117); BILIRUBIN,TOTAL 0.2 mg/dL (0.2-1.0); CREATININE 0.94 mg/dL (0.7-1.3)
[2019-01-09] MEDS ORDERED: MAGNESIUM SULFATE PMX 2GM/50ML 50 ML IV ONE (11:30)
[2019-01-09] MEDS ORDERED: POTASSIUM CHLORIDE 20 MEQ TAB.ER.PRT PO ONE ×2 (11:30→15:00)
[2019-01-09 14:10] VITALS: BP 134/75
[2019-01-09] MEDS: CEFTRIAXONE PMX 1GM/50ML 50 ML IV SCH (17:22)
[2019-01-09] MEDS: NICOTINE 14MG/24 HR PATCH.TD24 TD SCH (17:23)
[2019-01-09 20:18] VITALS: BP 129/84
[2019-01-09] MEDS: TRAZODONE 50MG TABLET PO SCH (20:27)
[2019-01-10 00:27] VITALS: BP 118/70
[2019-01-10 05:47] LABS: BASOPHILS # (AUTO) 0.08 x10^3/uL (0-0.1); BASOPHILS % (AUTO) 1 % (0-1); EOSINOPHILS # (AUTO) 0.06 x10^3/uL (0-0.4); EOSINOPHILS % (AUTO) 1 % (1-7); LYMPHOCYTES # (AUTO) 2.01 x10^3/uL (1-3.4); LYMPHOCYTES % (AUTO) 27 % (22-44); MD NO; MEAN CORPUSCULAR HGB CONC 33.2 g/dL (33.2-36.2); MEAN CORPUSCULAR VOLUME 90.5 fL (81-97); MEAN PLATELET VOLUME 8.2 fL (7.4-10.4); MONOCYTES # (AUTO) 0.54 x10^3/uL (0.2-0.8); MONOCYTES % (AUTO) 7 % (2-9); NEUTROPHILS # (AUTO) 4.65 x10^3/uL (1.8-6.8); NEUTROPHILS % (AUTO) 63 % (42-75); PLATELET COUNT 211 x10^3/uL (130-400); RED BLOOD COUNT 4.86 x10^6/uL (4.38-5.82); RED CELL DISTRIBUTION WIDTH 13.5 % (9.4-14.8)
[2019-01-10 05:49] LABS: ALANINE AMINOTRANSFERASE 24 U/L (12-78); ALBUMIN 2.6 g/dL (3.4-5.0); ANION GAP 7 mmol/L (5-15); CALCIUM 7.7 mg/dL (8.5-10.1); CHLORIDE 112 mmol/L (98-107); CREATININE 0.93 mg/dL (0.7-1.3)
[2019-01-10 05:51] LABS: ALKALINE PHOSPHATASE 88 U/L (45-117); BILIRUBIN,TOTAL 0.3 mg/dL (0.2-1.0); TOTAL PROTEIN 6.4 g/dL (6.4-8.2)
[2019-01-10] MEDS: HEPARIN 5,000 UNITS/ML, 1ML SQ SCH ×2 (05:57→13:00)
[2019-01-10] MEDS: SODIUM CHLORIDE 0.9% 1,000 ML IV SCH (05:57)
[2019-01-10] MEDS: METRONIDAZOLE PMX 500MG/100ML 100 ML IV SCH ×2 (05:57→11:00)
[2019-01-10] MEDS: NEUTRA PHOS K 250 MG TABLET PO SCH ×2 (06:21→09:25)
[2019-01-10] MEDS: BUSPIRONE 5 MG TABLET PO SCH (09:25)
[2019-01-10] MEDS: FLUOXETINE HCL 20 MG CAPSULE PO SCH (09:25)
[2019-01-10] MEDS: DOLUTEGRAVIR 50MG TAB PO SCH (09:25)
[2019-01-10] MEDS: OXYcodone IR 5MG TABLET PO PRN (09:26)
[2019-01-10 09:30] VITALS: BP 134/86
[2019-01-10] MEDS ORDERED: CIPR500T87 PO (13:52)
[2019-01-10] MEDS ORDERED: METR500T PO (13:52)
[2019-01-10 15:00] VITALS: BP 115/70
== END 2019-01-10 15:47 | disposition home or self-care (01) | DRG 871 ==
LOC: ED 16:33 → EDIP 16:34 → 4EST 19:13
PROVIDERS: ADMIT Family Medicine; ATTEND Hospitalist
DX: A41.9 Sepsis, unspecified organism (principal); N17.0 Acute kidney failure with tubular necrosis; K52.9 Noninfective gastroenteritis and colitis, unspecified; D75.1 Secondary polycythemia; D89.9 Disorder involving the immune mechanism, unspecified; E83.42 Hypomagnesemia; F15.90 Other stimulant use, unspecified, uncomplicated; F17.210 Nicotine dependence, cigarettes, uncomplicated; Z21 Asymptomatic human immunodeficiency virus [HIV] infection status; R65.20 Severe sepsis without septic shock; G43.909 Migraine, unspecified, not intractable, without status migrainosus; B19.20 Unspecified viral hepatitis C without hepatic coma; F32.9 Major depressive disorder, single episode, unspecified
CPT/HCPCS: 36415; 74177; 80048; 80053; 80307; 81001; 83605; 83690; 83735; 84100; 85025; 86361; 87040; 87046; 87324; 87427; 87536; 89055; 96361; 96365; 96375; 96376; G0378; J0696; J1170; J1644; J2405; Q9967; J2270; J3475; J7030; J7040